=== PATIENT | male | born 1950 | race Caucasian/White ===

== ENCOUNTER → 2016-05-16 | Outpatient (CLI) | payer BC ==
[~2016-05-16] MED LIST: AMOX1TAB12 PO; ASPI-586 PO; EPIN0.3P2 IM; METH4TAB27 PO; PRED20TA PO
[2016-05-16 15:47] VITALS: BP 132/84
--- NOTE | 2016-05-16 15:47 | Urgent Care T Sheet Gen (E) ---
Intake General Temperature (Fahrenheit): 98.5 Pulse: 67 Blood Pressure Systolic: 132 Blood Pressure Diastolic: 84 Respirations: 20 SPO2: 96 Description of Symptoms Patient presents with illness x 1 month. States his cough started about a month ago however over the last week, his symptoms have worsened. Notes chest congestion with productive cough, as well as malaise. Some nasal congestion. Has felt feverish but no documented temp. Been taking Ruth [place] without relief. History of Present Illness Allergies: Coded Allergies: No Known Drug Allergies (Unverified , 12/18/14) Home Meds Active Scripts Epinephrine HCl (Epipen)0.3 Mg/0.3 Ml Pen.injctr0.3 Mg IM UD #2 PEN Prov:GABY SMITH MD 12/18/14 Methylprednisolone (Medrol Dosepack)21 Tab/Pkt Ryuivf13 Tab PO UD #1 PKT Prov:GABY SMITH MD 12/18/14 Reported Medications Aspirin (Aspir 81)81 Mg Tablet.dr81 Mg PO DAILY 12/18/14 Respiratory Constitutional Symptoms: No Fever, Malaise EENTM: Nose Congestion Respiratory: Cough Short of breathNo Wheezing Cardiovascular: No symptoms reported Gastrointestinal/Abdominal: No symptoms reported All Other Systems Reviewed Remaining Systems: All other systems reviewed with negative findings Past Hqzfsgh-Bmmliu-Ispucr Hx Patient's Social History Recent foreign travel: No Surgeries/Hospitalizations Hospitalization/Surgery Hx: L BICEP L LEG R LEG FX Respiratory Respiratory History: None Cardiovascular Cardiovascular History: None Reproductive System Sexually Transmitted Diseases: No Gastrointestinal GI/Endocrine History: None Diabetes Diabetes: No HEENT Impaired Vision: None Hearing Impaired: None Integumentary Integumentary History: Pruritus Psychosocial Behavior Disorders: None Physical Exam Physical Exam General Appearance: WD/WN No apparent distress Eyes, Ears, Nose, Throat Ex: TMs normal Pharynx normal Other (red, swollen nasal turbinates with purulent drainage.) Neck Exam: Supple Lymphadenopathy Respiratory Exam: RhonchiNo Wheezes Cardiovascular Exam: Regular rate, rhythm Departure Urgent Care Impression Impression: Primary Impression: Bronchitis Departure Disposition: HOME OR SELF-CARE Condition: Stable Referrals: YOUNG DOMINGUEZ MD (PCP) Additional Instructions: I have started the patient on Augmentin and Prednisone for treatment. Offered to prescribe an inhaler, neymar since the patient has noticed SOB with work , however he declined. Suggested he also take some guaifenesin for congestion. Rest. Fluids Return as needed Patient understands DC instructions. All questions were answered. Scripts Prednisone 20 Mg Lxpoip19 Mg PO DAILY #6 TAB Prov:ANDRÉS LYMAN 05/16/16 Amoxicillin/Clavulanate Potassium (Augmentin 875mg/125mg)1 Each Tablet1 Tab PO BID #20 TAB Ref 0 Prov:ANDRÉS LYMAN 05/16/16 End of report . ANDRÉS LYMAN May 16, 2016 15:47
== END ==
LOC: MHUC 15:28
PROVIDERS: ATTEND Physician Assistant
DX: J40 Bronchitis, not specified as acute or chronic (principal)
CPT/HCPCS: 99213

== ENCOUNTER → 2016-06-07 | Outpatient (CLI) | payer BC ==
[2016-06-07 07:57] LABS: BASOPHILS % (AUTO) 1 % (0-2); EOSINOPHILS # (AUTO) 0.4 10^3uL; EOSINOPHILS % (AUTO) 9 % (0-4); LYMPHOCYTES # (AUTO) 1.4 X10^3; MEAN CORPUSCULAR HEMOGLOBIN 28.6 PG (26.0-34.0); MEAN CORPUSCULAR HGB CONC 33.7 g/dL (31.0-37.0); MEAN CORPUSCULAR VOLUME 85 FL (80-100); MEAN PLATELET VOLUME 10.1 FL (6.0-9.5); MONOCYTES # (AUTO) 0.4 X10^3; MONOCYTES % (AUTO) 8 % (3-11); NEUTROPHILS # (AUTO) 2.6 X10^3; NEUTROPHILS % (AUTO) 55 % (51-67); PLATELET COUNT 225 10^3uL (150-450); WHITE BLOOD COUNT 4.81 10^3uL (4.0-11.0)
[2016-06-07 08:51] LABS: ALKALINE PHOSPHATASE 108 U/L (38-126); ANION GAP 12.1 MEQ/L (3-15); BUN/CREATININE RATIO 13 (10-20); CALCULATED IONIZED CALCIUM 4.3 mg/dL (3.8-4.6); TOTAL PROTEIN 6.7 g/dL (6.4-8.5)
== END ==
LOC: LAB 07:38
PROVIDERS: ATTEND Family Medicine
DX: Z00.00 Encounter for general adult medical examination without abnormal findings (principal); Z12.5 Encounter for screening for malignant neoplasm of prostate
CPT/HCPCS: 36415; 71020; 80053; 80061; 83036; 84153; 84436; 84443; 85025; 93005